=== PATIENT | female | born 1965 | race Caucasian/White ===

== ENCOUNTER 2018-01-11 11:19 | Emergency (ER) | payer MEDICAID ==
[~2018-01-11] VITALS: Ht 162.6 cm; Wt 91.2 kg
[2018-01-11 11:27] VITALS: Ht 162.6 cm; Wt 91.2 kg
[2018-01-11 14:11] VITALS: BP 136/88
== END 2018-01-11 14:11 | disposition home or self-care (01) ==
LOC: ED 11:19
DX: J98.01 Acute bronchospasm (principal); I10 Essential (primary) hypertension; Z90.710 Acquired absence of both cervix and uterus; Z88.1 Allergy status to other antibiotic agents
CPT/HCPCS: J7512; J7613; J7644

== ENCOUNTER 2019-08-23 18:15 | Emergency (ER) | payer OTHER ==
[~2019-08-23] VITALS: Ht 162.6 cm; Wt 90.3 kg
[2019-08-23 18:18] VITALS: BP 159/88; Ht 162.6 cm; Wt 90.3 kg
== END 2019-08-23 19:30 | disposition left against medical advice (07) ==
LOC: ED 18:15
DX: Z53.21 Procedure and treatment not carried out due to patient leaving prior to being seen by health care provider (principal)